=== PATIENT | female | born 1985 | race Caucasian/White ===

== ENCOUNTER → 2017-08-28 15:50 | Outpatient (CLI) | payer SELFPAY ==
--- NOTE | 2017-08-28 | DI.US.S_ITS ---
PROCEDURE: US OB >= 14 WEEKS FETUS INDICATIONS: ANATOMY SCAN OUTSIDE/PRIOR DATING DATA: Last menstrual period (LMP): 04/12/17. LMP-based estimated date of delivery (MARIBEL): 01/17/18. First dating scan (date and location): 08/28/17, [facility]. Estimated date of delivery (MARIBEL) from first dating scan: 01/13/18. TECHNIQUE: Real-time scanning was performed of the fetus, with image documentation and biometric measurements. Endovaginal scanning: Not performed COMPARISON: None. FINDINGS: General: A single living intrauterine gestation is present. Presentation: Variable. Placenta: Placental position is posterior, without previa. Amniotic fluid index: 13.8 cm, normal range is 5-24 cm. heart rate: 149 beats per minute. Maternal cervical canal: 4.6 cm long. Normal lower limit is 2.5 cm. biometrics: Biparietal diameter: 4.9 cm, 20 weeks, 6 days Head circumference: 17.5 cm, 20 weeks, zero days Abdominal circumference: 15.1 cm, 20 weeks, 3 days Femur length: 3.1 cm, 19 weeks, 4 days Estimated gestational age from initial scan: not applicable. Composite gestational age from present scan: 20 weeks, 2 days Estimated weight and percentile: 326 g, 62nd percentile Measurement variability for biometric dating: +/- 7 days from 14 weeks to 15 weeks 6 days gestation, +/- 10 days from 16 weeks to 21 weeks 6 days gestation, +/- 2 weeks from 22 weeks to 27 weeks 6 days gestation, +/- 3 weeks for 28 weeks gestation or later. weight reference: 4500 g or EFW >90/95% is considered macrosomia or large for gestational age. EFW <10% is small for gestational age. EFW 5% or less is considered intra-uterine growth restriction. Anatomic survey: Neuro: Ventricles are non-dilated at less than 10 mm. Cisterna magna is normal at 3-11 mm. Cerebellum is normal in size and morphology. Nuchal skin fold: Normal at less than 6 mm between 14-21 weeks gestational age. Face: Nose and lips, facial profile are normal. Spine: No evidence for spina bifida. Heart: 4-chambered heart is present. The right ventricular outflow track is poorly characterize. The left ventricular outflow track is within normal limits. Diaphragm: Diaphragm is intact. Stomach: Left-sided stomach is present. Kidneys: No hydronephrosis. Normal is less than 5 mm in 2nd trimester, less than 7 mm in 3rd trimester. Cord: 3-vessel cord has orthotopic insertion. Bladder: Normal in size. Extremities: All 4 extremities identified. IMPRESSION: 1. Single live intrauterine gestation with a composite gestational age of 20 weeks, 2 days. 2. Overall normal sonographic anatomy. Of note, the right ventricular outflow tract is poorly characterized. Dictated by: Audrey Matias M.D. on 08/28/2017 at 20:12 Approved by: Audrey Matias M.D. on 08/28/2017 at 20:15
== END ==
PROVIDERS: Visit Provider Midwife
DX: Z34.92 Encounter for supervision of normal pregnancy, unspecified, second trimester (principal); Z3A.20 20 weeks gestation of pregnancy
CPT/HCPCS: 76811

== ENCOUNTER → 2020-01-02 08:52 | Outpatient (CLI) | payer OTHER, MEDICAID, SELFPAY ==
[2020-01-02 09:20] LABS: Add Manual Diff / Slide Review NO; Basophils Absolute Auto 0 /uL (0-100); Basophils Percent Auto 0.6 % (0-2); Eosinophils Absolute Auto 200 /uL (0-450); Eosinophils Percent Auto 2.3 % (2-4); Hematocrit 40.7 % (36-46); Hemoglobin 13.9 g/dL (12.0-16.0); Lymphocytes Absolute Auto 1900 /uL (1100-4500); Lymphocytes Percent Auto 24.6 % (25-40); Mean Corpuscular HGB Conc 34.1 % (30-36); Mean Corpuscular Hemoglobin 30.8 PG (26-34); Mean Corpuscular Volume 90.1 fL (80-100); Monocytes Absolute Auto 500 /uL (0-900); Monocytes Percent Auto 6.1 % (3-14); Neutrophils Absolute Auto 5200 /uL (1500-7000); Neutrophils Percent Auto 66.4 % (50-75); Platelet Count 200 X10^3/uL (150-400); Red Blood Cell Count 4.52 X10^6/uL (4.0-5.2); Red Cell Distribution Width 12.8 % (11.6-14.8); White Blood Cell Count 7.8 X10^3/uL (4.5-11.0)
[2020-01-02 09:31] LABS: Alanine Aminotransferase 16 IU/L (<35); Albumin 4.6 g/dL (3.5-5.0); Albumin Globulin Ratio 1.4 (1.0-2.8); Alkaline Phosphatase 63 U/L (38-126); Aspartate Aminotransferase 26 IU/L (14-36); BUN Creatinine Ratio 19.2 (6-22); Bilirubin Total 0.4 mg/dL (0.2-1.3); Blood Urea Nitrogen 14 mg/dL (7-17); Calcium 9.5 mg/dL (8.4-10.2); Carbon Dioxide 30 mmol/L (22-32); Chloride 102 mmol/L (98-107); Cholesterol 195 mg/dL (140-199); Estimated Glomerular Filt Rate > 60.0 mL/min (>60); Globulin 3.4 g/dL (1.7-4.1); Glucose 98 mg/dL (70-100); HDL Cholesterol 77 mg/dL (40-60); HEMOLYSIS < 15 (0-50); LDL Cholesterol Calculated 102 mg/dL (<100); Sodium 140 mmol/L (137-145); Triglycerides 80 mg/dL (35-150)
[2020-01-02 09:35] LABS: Appearance Urine UA CLEAR; Bilirubin Urine UA NEGATIVE (NEGATIVE); Color Urine UA YELLOW; Glucose Urine UA NEGATIVE (Negative); Ketones Urine UA NEGATIVE (NEGATIVE); Leukocyte Esterase Urine UA NEGATIVE (NEGATIVE); Nitrite Urine UA NEGATIVE (Negative); Occult Blood Urine UA NEGATIVE (Negative); Protein Urine UA NEGATIVE (Negative); Urobilinogen Urine UA 0.2 E.U./dL (0.2)
[2020-01-02 10:34] LABS: TSH w/ Reflex to FT4 2.17 uIU/mL (0.47-4.68)
== END ==
PROVIDERS: PCP Registered Nurse; Referring Provider Registered Nurse; Visit Provider Registered Nurse
DX: L65.9 Nonscarring hair loss, unspecified (principal); Z83.49 Family history of other endocrine, nutritional and metabolic diseases; Z82.49 Family history of ischemic heart disease and other diseases of the circulatory system; Z00.00 Encounter for general adult medical examination without abnormal findings
CPT/HCPCS: 36415; 80053; 80061; 81003; 84443; 85025

== ENCOUNTER → 2020-10-01 10:29 | Outpatient (CLI) | payer OTHER, MEDICAID, SELFPAY ==
--- NOTE | 2020-10-01 | DI.US.S_ITS ---
PROCEDURE: US OB >= 14 WEEKS FETUS INDICATIONS: 20 WEEK ANATOMICAL SURVEY OUTSIDE/PRIOR DATING DATA: First dating scan (date and location): 10/01/2020. Estimated date of delivery (MARIBEL) from first dating scan: 02/24/2021. TECHNIQUE: Real-time scanning was performed of the fetus, with image documentation and biometric measurements. Endovaginal scanning: No COMPARISON: None. FINDINGS: General: A single living intrauterine gestation is present. Presentation: Variable. Placenta: Placental position is posterior , without previa. Amniotic fluid index: 11.3 cm, normal range is 5-24 cm. heart rate: 155 beats per minute. Maternal cervical canal: 4.8 cm long. Normal lower limit is 2.5 cm. biometrics: Biparietal diameter: 18 weeks 5 days Head circumference: 19 weeks Abdominal circumference: 19 weeks 4 days Femur length: 19 weeks 1 day Estimated gestational age from initial scan: 19 weeks 1 Composite gestational age from present scan: 19 weeks 1 day Estimated weight and percentile: 283 g Measurement variability for biometric dating: +/- 7 days from 14 weeks to 15 weeks 6 days gestation, +/- 10 days from 16 weeks to 21 weeks 6 days gestation, +/- 2 weeks from 22 weeks to 27 weeks 6 days gestation, +/- 3 weeks for 28 weeks gestation or later. weight reference: 4500 g or EFW >90/95% is considered macrosomia or large for gestational age. EFW <10% is small for gestational age. EFW 5% or less is considered intra-uterine growth restriction. Anatomic survey: Neuro: Ventricles are non-dilated at less than 10 mm. Cisterna magna is normal at 3-11 mm. Cerebellum is normal in size and morphology. Nuchal skin fold: Normal at less than 6 mm between 14-21 weeks gestational age. Face: Nose and lips, facial profile are normal. Spine: No evidence for spina bifida. Heart: 4-chambered heart is present, with normal ventricular outflow tracts. Diaphragm: Diaphragm is intact. Stomach: Left-sided stomach is present. Kidneys: Mild renal pyelectasis with the renal pelves measuring 4.5 mm on the right and 4.8 mm on the left Cord: 3-vessel cord has orthotopic insertion. Bladder: Normal in size. Extremities: All 4 extremities identified. Complex hypoechoic focus within the maternal cervix likely a complex nabothian cyst. IMPRESSION: 1. 19 week 1 day single living IUP corresponding to ultrasound MARIBEL of 02/24/2021. 2. Mild renal pyelectasis; otherwise normal anatomy. -Follow-up recommended. Dictated by: Kyrie SERVIN Interpreted: Silver Allen MD on 10/01/2020 at 16:47 Transcribed by: JELANI on 10/01/2020 at 16:49 Approved by: Silver Allen M.D. on 10/01/2020 at 17:19
== END ==
PROVIDERS: PCP Registered Nurse; Referring Provider Midwife; Visit Provider Midwife
DX: Z36.89 Encounter for other specified antenatal screening (principal); Z3A.19 19 weeks gestation of pregnancy
CPT/HCPCS: 76811

== ENCOUNTER → 2020-12-14 15:39 | Outpatient (CLI) | payer OTHER, MEDICAID, SELFPAY ==
--- NOTE | 2020-12-14 15:41 | DI.US.S_ITS ---
PROCEDURE: US OB LIMITED INDICATIONS: FOLLOW UP PYELECTASIS, INTERVAL GROWTH OUTSIDE/PRIOR DATING DATA: First dating scan (date and location): 10/01/2020 . Estimated date of delivery (MARIBEL) from first dating scan: 02/24/2021 . TECHNIQUE: Real-time scanning was performed of the fetus, with image documentation and biometric measurements. Endovaginal scanning: None COMPARISON: [facility], OB >= 14 WEEKS FETUS, 10/01/2020, 9:59. FINDINGS: General: A single living intrauterine gestation is present. Presentation: Vertex. Placenta: Placental position is posterior , without previa. Amniotic fluid index: 13.7 cm, normal range is 5-24 cm. heart rate: 147 beats per minute. Maternal cervical canal: 4.8 cm long. Normal lower limit is 2.5 cm. biometrics: Biparietal diameter: 31 weeks 2 days Head circumference: 30 weeks 1 day Abdominal circumference: 29 weeks 4 days Femur length: 29 weeks 1 day Estimated gestational age from initial scan: 29 weeks 5 days Composite gestational age from present scan: 30 weeks 0 days Estimated weight and percentile: 14 30 g, 34th percentile Measurement variability for biometric dating: +/- 7 days from 14 weeks to 15 weeks 6 days gestation, +/- 10 days from 16 weeks to 21 weeks 6 days gestation, +/- 2 weeks from 22 weeks to 27 weeks 6 days gestation, +/- 3 weeks for 28 weeks gestation or later. weight reference: 4500 g or EFW >90/95% is considered macrosomia or large for gestational age. EFW <10% is small for gestational age. EFW 5% or less is considered intra-uterine growth restriction. Other: Bilateral renal pyelectasis which measures up to 8 mm on the right and 7.4 mm on the left. Hypoechoic structure again seen within the maternal cervix measuring 15 x 22 mm which may represent a complex nabothian cyst. Continued sonographic surveillance is recommended. IMPRESSION: 1. Normal interval growth. 2. Persistent bilateral renal pyelectasis and continued sonographic surveillance is recommended. 3. Complex maternal cervical mass which may represent a nabothian cyst. Attention on follow-up recommended. Dictated by: Kyrie SERVIN Interpreted: Jose Cabrera MD on 12/14/2020 at 16:45 Transcribed by: DL on 12/14/2020 at 16:50 Approved by: Jose Cabrera M.D. on 12/14/2020 at 17:55
== END ==
PROVIDERS: PCP Registered Nurse; Referring Provider Midwife; Visit Provider Midwife
DX: O35.9XX9 Maternal care for (suspected) fetal abnormality and damage, unspecified, other fetus (principal); Z3A.30 30 weeks gestation of pregnancy
CPT/HCPCS: 76815

== ENCOUNTER → 2023-05-20 06:41 | Outpatient (CLI) | payer OTHER, SELFPAY ==
--- NOTE | 2023-05-20 06:42 | DI.US.S_ITS ---
PROCEDURE: US PELVIC COMPLETE INDICATIONS: FOLLOW-UP CERVICAL MASS TECHNIQUE: Real-time scanning was performed of the pelvic organs, with image documentation. Additional endovaginal scanning was necessary due to incomplete visualization of the adnexal and endometrial structures by transabdominal scanning. COMPARISON: [facility], US, US OB >= 14 WEEKS FETUS, 10/01/2020, 9:59. [facility], US, US PELVIC COMPLETE, 05/06/2021, 12:31. [facility], US, US PELVIC COMPLETE, 10/21/2021, 16:00. [facility], , US PELVIC COMPLETE, 04/22/2022, 10:22. FINDINGS: Uterus: Uterus is anteverted and normal in size at 10.3 x 5.1 x 6.2 cm. The myometrium is homogeneous. The endometrium measures 10.3 mm combined thickness. There is a right anterior intramural fibroid located in the lower uterine segment which measures 3.5 x 2.1 x 3.6 cm on the current study. This measured 2.1 x 1.2 cm in the sagittal plane on the comparison ultrasound from April 22, 2022. Ovaries: The right ovary measures 2.1 x 3.5 x 1.9 cm, with a calculated ovarian volume of 7.3 cc. The left ovary measures 3.1 x 1.8 x 1.7 cm, with a calculated ovarian volume of 4.8 cc. The ovaries have a normal sonographic appearance. Less than 12 follicles can be seen in each ovary. No adnexal masses are seen. Other: No pathologic free abdominal or pelvic fluid. IMPRESSION: 1. Fibroid of the lower uterine segment which appears to have markedly increased in size when compared with the study dated April 22, 2022 and the study dated October 21, 2021. However, the prior studies are limited. If further characterization is warranted, gynecologic protocol MRI could be used. We strive to produce accurate, complete, and clear reports of imaging services. To assist us in improving patient care, this report was composed using standard report templates and voice recognition software. Therefore, it may contain abnormal punctuation, insertions and/or omissions. Occasional wrong-word or sound-alike substitutions may occur. Though we review the report and make efforts to correct it, we do recommend that the report be read carefully in proper context to recognize any text inaccuracies. Dictated by: Audrey Matias M.D. on 05/20/2023 at 15:12 Approved by: Audrey Matias M.D. on 05/20/2023 at 15:17
== END ==
LOC: US 06:41
PROVIDERS: Referring Provider Obstetrics & Gynecology; Visit Provider Obstetrics & Gynecology
DX: N88.8 Other specified noninflammatory disorders of cervix uteri (principal); D25.1 Intramural leiomyoma of uterus
CPT/HCPCS: 76830; 76856

== ENCOUNTER → 2023-06-03 16:16 | Outpatient (CLI) | payer OTHER, SELFPAY ==
--- NOTE | 2023-06-03 16:18 | DI.MRI.S_ITS ---
PROCEDURE: MR PELVIS WO/W CON INDICATIONS: cervical mass TECHNIQUE: Coronal HASTE, sagittal breath-hold T2 FSE; axial T1 FSE with and without fat saturation through the pelvis. Optional long- and short-axis uterine nonbreath-hold T2 FSE through the uterus. Sagittal or axial dynamic VIBE during administration of contrast. Post-contrast axial or coronal VIBE/2-D FLASH with fat saturation from the iliac crests to the symphysis. Optional diffusion weighted imaging and ADC may be performed. COMPARISON: [facility], US, US PELVIC COMPLETE, 04/22/2022, 10:22. [facility], US, US PELVIC COMPLETE, 05/06/2021, 12:31. FINDINGS: Image quality: Excellent. Uterus: Uterus is normal in size. Endometrium is normal in thickness. Junctional zone is normal in thickness at 12 mm or less. Within the anterior musculature of the cervix, along the right side, there is a 2.6 x 2.5 x 2.2 centimeter faintly enhancing mass, which slightly displaces the cervical canal (series 21, image 86). This previously measured 2.0 x 1.2 centimeters in 2022. This mass does demonstrate restricted diffusion. Enhancement is lower and more heterogeneous than the adjacent myometrium. Adnexa: Both ovaries are normal in size, without suspicious cystic or solid lesions. Urinary system: Bladder wall is normal in thickness. Distal ureters are non distended. Urethra appears normal in morphology. Nodes and vessels: No pelvic or inguinal adenopathy by size criteria. Iliac vessels are normal in size. Bowel and peritoneum: No pathologic free pelvic fluid. Inferior colon and small bowel loops are normal in caliber. Soft tissues: No inguinal hernias. No findings of pelvic floor incompetence in the absence of provocation. Bones: Marrow demonstrates normal overall signal. IMPRESSION: Growing mass within the musculature of the anterior right cervix, measuring 2.6 x 2.5 x 2.2 centimeters, previously 2.0 x 1.2 centimeters in 2022. While the location favors a lower uterine segment fibroid, imaging characteristics are slightly atypical given comparison ultrasound features (hypoechoic, without posterior shadowing) and the presence of restricted diffusion and heterogeneous enhancement. Consider tissue sampling. Otherwise, annual sonographic follow-up should be considered. Dictated by: Arian Mondragon M.D. on 06/04/2023 at 16:16 Approved by: Arian Mondragon M.D. on 06/04/2023 at 16:25
== END ==
LOC: MRI 16:17
PROVIDERS: Referring Provider Obstetrics & Gynecology; Visit Provider Obstetrics & Gynecology
DX: N88.8 Other specified noninflammatory disorders of cervix uteri (principal)
CPT/HCPCS: 72197

== ENCOUNTER → 2024-07-29 14:13 | Outpatient (CLI) | payer BC, SELFPAY ==
[2024-07-29 16:08] LABS: Hematocrit 39.4 % (36-46); Hemoglobin 13.3 g/dL (12.0-16.0); Mean Corpuscular HGB Conc 33.8 % (30-36); Mean Corpuscular Hemoglobin 30.5 PG (26-34); Mean Corpuscular Volume 90.3 fL (80-100); Platelet Count 228 X10^3/uL (150-400); Red Blood Cell Count 4.36 X10^6/uL (4.0-5.2); Red Cell Distribution Width 13.7 % (11.6-14.8); White Blood Cell Count 6.3 X10^3/uL (4.5-11.0)
[2024-07-29 16:10] LABS: Alanine Aminotransferase 26 IU/L (<35); Albumin 4.7 g/dL (3.5-5.0); Albumin Globulin Ratio 1.6 (1.0-2.8); Alkaline Phosphatase 54 U/L (38-126); Aspartate Aminotransferase 32 IU/L (14-36); BUN Creatinine Ratio 14.3 (6-22); Bilirubin Total 0.7 mg/dL (0.2-1.3); Blood Urea Nitrogen 14 mg/dL (7-17); Calcium 9.6 mg/dL (8.4-10.2); Carbon Dioxide 30 mmol/L (22-32); Chloride 102 mmol/L (98-107); Estimated Glomerular Filt Rate > 60 mL/min (>60); Globulin 2.9 g/dL (1.7-4.1); Glucose 89 mg/dL (70-100); HEMOLYSIS < 15 (0-50); Potassium 3.8 mmol/L (3.4-5.1); Sodium 138 mmol/L (137-145); Total Protein 7.6 g/dL (6.3-8.2)
[2024-07-29 16:14] LABS: HEMOLYSIS < 15 (0-50); Iron 107 ug/dL (37-170)
[2024-07-29 16:25] LABS: Percent Iron Saturation 33 % (15-50); Total Iron Binding Capacity 321 ug/dL (265-497); Transferrin 277 mg/dL (206-381)
[2024-07-29 16:46] LABS: Ferritin 47 ng/mL (6-137)
[2024-07-29 17:32] LABS: Neutrophils Absolute Manual 3213 /uL (3000-5900); RBC Morphology Normal Morphology; Total Cells Counted 100
[2024-08-01 17:08] LABS: Zinc 70 ug/dL (44-115)
== END ==
PROVIDERS: PCP Student in an Organized Health Care Education/Training Program; Referring Provider Student in an Organized Health Care Education/Training Program; Visit Provider Student in an Organized Health Care Education/Training Program
DX: E55.9 Vitamin D deficiency, unspecified (principal); Z86.39 Personal history of other endocrine, nutritional and metabolic disease; L29.9 Pruritus, unspecified
CPT/HCPCS: 36415; 80053; 82306; 82728; 83540; 83550; 84630; 85025

== ENCOUNTER → 2024-08-09 16:37 | Outpatient (CLI) | payer BC, SELFPAY ==
--- NOTE | 2024-08-09 16:38 | DI.US.S_ITS ---
PROCEDURE: US SOFT TISSUE HEAD AND NECK INDICATIONS: lymph node TECHNIQUE: Real-time scanning was performed of the neck region of interest, with image documentation. COMPARISON: None. FINDINGS/IMPRESSION: Targeted ultrasound of the occipital region demonstrates a normal appearing occipital lymph node measuring 1.2 x 0.3 x 1.0 cm. This has a normal reniform shape, fatty hilum and measures within normal limits. No further follow-up is indicated. Dictated by: Arian Mondragon M.D. on 08/10/2024 at 8:59 Approved by: Arian Mondragon M.D. on 08/10/2024 at 9:00
== END ==
LOC: US 16:38
PROVIDERS: PCP Student in an Organized Health Care Education/Training Program; Referring Provider Student in an Organized Health Care Education/Training Program; Visit Provider Student in an Organized Health Care Education/Training Program
DX: R22.1 Localized swelling, mass and lump, neck (principal)
CPT/HCPCS: 76536